=== PATIENT | male | born 1990 | race Caucasian/White ===

== ENCOUNTER 2021-08-06 05:27 | Emergency (ER) | payer SELFPAY ==
[2021-08-06 05:39] VITALS: BP 142/103; PULSE 106; RESP 19; TEMP 37.2; O2SAT 95; BMI 34.4
--- NOTE | 2021-08-06 05:41 | XRR_ITS ---
PROCEDURE INFORMATION: Exam: XR Chest Exam date and time: 08/06/2021 5:54 AM Age: 31 years old Clinical indication: Cough; Patient HX: Cougihing x 4 days; Additional info: Dyspnea/cough TECHNIQUE: Imaging protocol: XR of the chest. Views: 1 view. COMPARISON: No relevant prior studies available. FINDINGS: Lungs: Hyperinflation and mild interstitial prominence, without acute infiltrate. Pleural spaces: No pleural effusion. Heart/Mediastinum: No cardiomegaly. Bones/joints: Unremarkable. XR/XR chest 1V portable [id number] IMPRESSION: Hyperinflation and mild interstitial prominence, without acute infiltrate.
[2021-08-06 06:00] VITALS: BP 139/93; PULSE 102; RESP 20; O2SAT 95
[2021-08-06 06:11] LABS: Basophils % 0.2 %; Eosinophils # 0.1 10^3/uL (0.0-0.8); Eosinophils % 1.3 %; Hematocrit 47.5 % (42.0-52.0); Hemoglobin 16.8 g/dL (11.7-16.6); Lymphocytes # 1.5 10^3/uL (0.8-4.8); Lymphocytes % 33.5 %; Mean Corpuscular HGB Conc 35.4 g/dL (30.0-36.0); Mean Corpuscular Hemoglobin 34.9 pg (28.0-34.0); Mean Corpuscular Volume 98.5 fl (80-94); Mean Platelet Volume 9.3 fL (7.4-10.4); Monocytes # 0.5 10^3/uL (0.2-0.9); Monocytes % 11.4 %; Neutrophils # 2.44 10^3/uL (1.8-7.7); Neutrophils % 53.4 %; Nucleated Red Blood Cells % 0 %; Platelet Count 153 10^3/cmm (130-400); Red Blood Count 4.82 10^6/uL (4.1-5.3); Red Cell Distribution Width 12.9 % (12.1-15.1); White Blood Count 4.6 10^3/uL (4.0-10.0)
--- NOTE | 2021-08-06 06:11 | W.ED.FEVER ---
HPI - Fever General: Chief Complaint: Fever Stated Complaint: N/Cough/Lungs hurt Time Seen by Provider: 08/06/21 05:38 Source: patient Mode of arrival: ambulatory Limitations: no limitations History of Present Illness: 31-year-old male presents emergency room complaining of cough congestion flulike symptoms for the last 4 days. His daughter tested positive for flu previously. His symptoms began 4 days ago he has a mildly productive cough. He is a smoker. He has had some nausea but that has already passed he denies any diarrhea. No anosmia. No chest pain. MD elicited complaint: fever Onset (ago): day(s) (4) Exacerbating factors: nothing Relieving factors: nothing Associated symptoms: Reports chills; Deny abdominal pain, flank pain, chest pain, confusion, cough, diarrhea, dysuria, extremity pain, headache(s), myalgias, nasal congestion, nausea, night sweats, rash, rhinorrhea, short of breath, sinus pain, stiffness, sore throat, vomiting or weight loss Treatments prior to arrival fever: none Review of Systems Const: Reports: fever(s) and chills; Denies: night sweats ENMT: Denies: nasal congestion or sinus pain Card: Reports: edema and swelling of feet/ankles; Denies: chest pain Resp: Reports: dyspnea and productive cough; Denies: non-productive cough GI: Denies: abdominal pain, nausea, vomiting or diarrhea : Denies: flank pain, difficulty urinating or dysuria Musc: Denies: extremity pain Skin/Breast: Denies: rash or pruritus Neuro: Denies: headache(s) or confusion PFS ED PFSH: Medical History (Updated 08/06/21 @ 06:17 by Zak Bedoya DO) No significant past medical history Surgical History (Updated 08/06/21 @ 06:14 by Zak Bedoya DO) No significant past surgical history Social History (Updated 08/06/21 @ 06:14 by Zak Bedoya DO) Smoking and tobacco status: current every day smoker Physical Exam Const: COMMON NORMALS: no acute distress GENERAL APPEARANCE: cooperative and comfortable ORIENTATION/CONSCIOUSNESS: Yes awake, Yes oriented to person, Yes oriented to place and Yes oriented to time HENMT: COMMON NORMALS: normocephalic, atraumatic and hearing grossly normal bilaterally HEAD & SCALP: normocephalic and atraumatic Neck/C-Spine: COMMON NORMALS: no JVD Resp: COMMON NORMALS: normal respiratory effort, No retractions, No use of accessory muscles and clear to auscultation bilaterally AUSCULTATION: clear to auscultation bilaterally Cardio: COMMON NORMALS: no JVD, regular rate, regular rhythm and No murmurs present (Cardio) RATE: regular rate RHYTHM: regular rhythm GI: COMMON NORMALS: Soft to palpation and No hepatosplenomegaly present AUSCULTATION: Yes normoactive bowel sounds PALPATION: Yes Soft to palpation, No Tenderness to palpation present (GI), No Guarding due to palpation present (GI) and Yes No hepatosplenomegaly present Extremity: COMMON NORMALS: normal to inspection, capillary refill normal, no clubbing, cyanosis or edema, no calf tenderness and no pedal edema Neuro: SENSORIUM/ORIENTATION: Yes oriented to person, Yes oriented to place and Yes oriented to time Skin: COMMON NORMALS: no rashes or lesions noted GENERAL SKIN EXAM: no rashes or lesions noted Course Vital Signs: Vital signs: Vital Signs Temperature 98.9 F 08/06/21 05:39 Pulse Rate 84 08/06/21 06:30 Respiratory Rate 20 H 08/06/21 06:30 Blood Pressure 121/92 08/06/21 06:30 Pulse Oximetry 93 08/06/21 06:30 MDM - Fever Medical Decision Making Chest x-ray unremarkable clinically patient has flu. He is past the 48-hour timeframe starting Tamiflu. Given known exposure to a positive there is little benefit in testing at this point supportive cares and follow-up as needed Medical Records I reviewed the patient's medical records. Lab Data I reviewed the patient's lab results. : 08/06/21 05:55 08/06/21 05:55 Laboratory Results WBC 4.6 10^3/uL (4.0-10.0) 08/06/21 05:55 RBC 4.82 10^6/uL (4.1-5.3) 08/06/21 05:55 Hgb 16.8 g/dL (11.7-16.6) H 08/06/21 05:55 Hct 47.5 % (42.0-52.0) 08/06/21 05:55 MCV 98.5 fl (80-94) H 08/06/21 05:55 MCH 34.9 pg (28.0-34.0) H 08/06/21 05:55 MCHC 35.4 g/dL (30.0-36.0) 08/06/21 05:55 RDW 12.9 % (12.1-15.1) 08/06/21 05:55 Plt Count 153 10^3/cmm (130-400) 08/06/21 05:55 MPV 9.3 fL (7.4-10.4) 08/06/21 05:55 Neut % (Auto) 53.4 % 08/06/21 05:55 Lymph % (Auto) 33.5 % 08/06/21 05:55 [place] % (Auto) 11.4 % 08/06/21 05:55 Eos % (Auto) 1.3 % 08/06/21 05:55 Baso % (Auto) 0.2 % 08/06/21 05:55 Neut # (Auto) 2.44 10^3/uL (1.8-7.7) 08/06/21 05:55 Lymph # (Auto) 1.5 10^3/uL (0.8-4.8) 08/06/21 05:55 [place] # (Auto) 0.5 10^3/uL (0.2-0.9) 08/06/21 05:55 Eos # (Auto) 0.1 10^3/uL (0.0-0.8) 08/06/21 05:55 Baso # (Auto) 0.0 10^3/uL (0.0-0.1) 08/06/21 05:55 Nucleated RBC % (auto) 0 % 08/06/21 05:55 Nucleated RBCs # 0.0 /100WBC 08/06/21 05:55 Sodium 138 mmol/L (136-145) 08/06/21 05:55 Potassium 3.8 mmol/L (3.5-5.1) 08/06/21 05:55 Chloride 101 mmol/L (98-107) 08/06/21 05:55 Carbon Dioxide 24 mmol/L (22-29) 08/06/21 05:55 Anion Gap 16.8 (5-19) 08/06/21 05:55 BUN 10 mg/dL (6-20) 08/06/21 05:55 Creatinine 0.9 mg/dL (0.7-1.2) 08/06/21 05:55 GFR Calculation 97.8 mL/min (90-130) 08/06/21 05:55 Glucose 106 mg/dL (65-115) 08/06/21 05:55 Calculated Osmolality 285 mOsm/kg (285-295) 08/06/21 05:55 Calcium 9.5 mg/dL (8.5-10.5) 08/06/21 05:55 Discharge Plan Discharge Patient Disposition: Home Clinical Impression: Influenza Prescriptions: New benzonatate 200 mg capsule 200 mg PO TID PRN (Reason: cough) Qty: 30 0RF albuterol sulfate 90 mcg/actuation HFA aerosol inhaler 2 inh INHALATION Q4H PRN (Reason: shortness of breath or wheezing) Qty: 18 0RF Discharge Orders: Discharge ED (Routine); Ordered 08/06/21 Ordered By: Zak Bedoya Discharge Diet: Advance as tolerated Discharge Activity: Increase activity as tolerated Patient Instructions: Opioid Safety Activity Restrictions/Additional Instructions: Use medicines given today as needed for relief of symptoms. You can combine with Tylenol or ibuprofen as well. Coding Level of Care Code ED Informatics Physician for Shashi Fwd Exam Comprehensive
[2021-08-06 06:27] LABS: Anion Gap 16.8 (5-19); Blood Urea Nitrogen 10 mg/dL (6-20); Calcium 9.5 mg/dL (8.5-10.5); Carbon Dioxide 24 mmol/L (22-29); Chloride 101 mmol/L (98-107); Glomerular Filtration Rate 97.8 mL/min (90-130); Glucose 106 mg/dL (65-115); Osmolality Calculated 285 mOsm/kg (285-295); Potassium 3.8 mmol/L (3.5-5.1); Sodium 138 mmol/L (136-145)
[2021-08-06 06:30] VITALS: BP 121/92; PULSE 84; RESP 20; O2SAT 93
[2021-08-06 07:23] VITALS: BP 119/82; PULSE 99; RESP 18; O2SAT 96
== END 2021-08-06 07:25 | disposition home or self-care (01) ==
PROVIDERS: Emergency Provider Family Medicine
DX: J11.1 Influenza due to unidentified influenza virus with other respiratory manifestations (principal); F17.210 Nicotine dependence, cigarettes, uncomplicated
CPT/HCPCS: 71045; 80048; 85025; 99283